=== PATIENT | female | born 1965 | race Caucasian/White ===

== ENCOUNTER 2022-08-28 08:50 | Outpatient (CLI) | payer OTHER, SELFPAY ==
--- OUTSIDE RECORDS SUMMARY | 2022-08-28 08:55 | XMS_ITS | Clinical Summary ---
:1965 Author Organization [facility] [place] [address] Care Team Providers Name Role Phone Gertrudis Juarez MD Primary Care Provider Allergies Active Allergy Reactions Severity Noted Date Comments Amoxicillin Rash 01/26/2019 Penicillin G Benzathin,Procain Rash 03/31/2014 Sulfa (Sulfonamide Antibiotics) Rash 9 Medications Medication Sig Dispensed Refills Start Date End Date Status levonorgestrel-ethinyl Take 1 tablet by 1 Package 0 12/19/2011 Active estradiol (TRIVORA, mouth once daily. 28,) 50-30 (6)/75-40 (5)/125-30(10) tablet Doxycycline Monohydrate Take 1 tablet by 0 2 Active 50 mg tablet mouth. Take 1 tablet twice daily for 1 month then Once daily calcium-cholecalciferol Take 1 tablet by 0 2 Active , vitamin D, 500 mg-200 mouth 3 times units (CALCIUM 500+D) daily with meals. 500 mg(1,250mg) -200 unit tablet cholecalciferol Take 1 capsule by 0 03/31/2014 Active (VITAMIN D) 1,000 unit mouth once daily. capsule metroNIDAZOLE 0.75 % Apply topically 45 g 0 06/20/2020 Active cream to affected area(s) 2 times daily. clocortolone 0.1% Apply topically 1 Tube 1 06/20/2020 Active topical (CLODERM) 0.1 % to affected topical area(s) 3 times creamIndications: daily. Rosacea brimonidine 0.33 % Apply topically 1 g 1 06/22/2020 Active glwpIndications: to affected Rosacea area(s). Active Problems Problem Noted Date History of acne rosacea 12/19/2011 Immunizations Name Administration Dates Next Due Influenza, IIV4 08/05/2018, 08/22/2015 Tdap 06/28/2010, 09/30/2008 Family History Medical History Relation Name Comments Brain cancer Brother Good Health Daughter 1 Good Health Daughter 2 Stroke Father Good Health Mother Relation Name Status Comments Brother Daughter 1 Alive Daughter 2 Alive Father Mother Alive Social History Tobacco Use Types Packs/Day Years Used Date Never Smoker Smokeless Tobacco: Never Used Alcohol Use Standard Drinks/Week Comments No 0 (1 standard drink = 0.6 oz pure alcoho l) Sex Assigned at Date Recorded Not on file Obstetrics History Last Filed Vital Signs Vital Sign Reading Time Taken Comments Blood Pressure 119/56 01/26/2019 11:26 AM CDT Pulse 76 01/26/2019 11:26 AM CDT Temperature 37.7 ??C (99.8 ??F) 01/26/2019 11:26 AM CDT Respiratory Rate 18 12/30/2018 9:15 AM CDT Oxygen Saturation 97% 01/26/2019 11:26 AM CDT Inhaled Oxygen Concentration - - Weight 56.2 kg (124 lb) 01/26/2019 11:26 AM CDT Height 160 cm (5' 3) 12/30/2018 9:15 AM CDT Body Mass Index 21.97 12/30/2018 9:15 AM CDT Plan of Treatment Health Maintenance Due Date Last Done Comments COVID-19 vaccine series (#1) 1966 HIV for age 15-65 1981 Hepatitis C screening for age 0401/17/1984 18-79 Colonoscopy through age 75 2011 Lipids for age 45-75 2011 Mammogram for age 45-75 2011 Zoster (shingles) series for age 0401/17/2016 50+ (1 of 2) BMI (ht and wt on same day) for 12/31/2019 12/30/2018, 05/31 age 18+ Tetanus booster 06/28/2020 06/28/2010, 09/30/2008 Pap test for age 21-65 08/09/2020 08/09/2017, 08/09/2017, 08/20/2014 Depression screening for age 12+ 06/21/2021 06/21/2020, , 01/26/2019, Additional history exists Influenza for age 50-64 05/31/2022 08/05/2018, 08/22/2015 Tdap Completed 06/28/2010, 09/30/2008 Results Not on filefrom Last 3 Months Insurance Payer Benefit Plan / Subscriber ID Effective Dates Phone Addre ss Type Group PREFERRED ONE PREFERRED ONE [id number] 2018-Present [address] [place] [phone] (Home) [phone] Care Teams Midwife Practitioner Relationship Specialty Start Date End Date Gertrudis Juarez MD PCP - General Family Practice 12/29/[address] [place] [address]
[2022-08-28 14:07] LABS: Chloride* 106 mmol/L (96-114); Sodium* 138 mmol/L (135-149)
[2022-08-28 14:08] LABS: Potassium* 4.4 mmol/L (3.6-5.1)
[2022-08-28 14:10] LABS: Carbon Dioxide* 27 mmol/L (20-32); Creatinine* 0.6 mg/dL (0.5-1.5); Estimated Glomerular Filt Rate 105 ml/min
[2022-08-28 14:11] LABS: Blood Urea Nitrogen* 12 mg/dL (7-30); Calcium* 8.6 mg/dL (8.4-10.6); Glucose* 86 mg/dL (60-115)
== END 2022-08-28 08:51 | disposition home or self-care (01) ==
PROVIDERS: PCP Family Medicine; Visit Provider Family Medicine
DX: Z01.419 Encounter for gynecological examination (general) (routine) without abnormal findings (principal); N95.1 Menopausal and female climacteric states; N95.9 Unspecified menopausal and perimenopausal disorder; Z13.1 Encounter for screening for diabetes mellitus; Z12.4 Encounter for screening for malignant neoplasm of cervix
CPT/HCPCS: 80048; 83001; 84443

== ENCOUNTER 2023-08-30 10:22 | Outpatient (CLI) | payer OTHER, SELFPAY | END 2023-08-30 10:23 | disposition home or self-care (01) | PROVIDERS: PCP Family Medicine; Visit Provider Family Medicine | DX: N95.1 Menopausal and female climacteric states (principal); Z13.1 Encounter for screening for diabetes mellitus; Z13.220 Encounter for screening for lipoid disorders | CPT/HCPCS: 80048; 80061; 83001 ==

== ENCOUNTER 2024-08-26 14:01 | Outpatient (CLI) | payer OTHER, SELFPAY ==
--- OUTSIDE RECORDS SUMMARY | 2024-08-26 14:05 | XMS_ITS | Clinical Summary ---
Author Organization [facility] Address [place], [place] [address] Care Team Providers Care Raw Material Handler Name Role Phone Larry Blake MD Primary Care Provider [phone] Allergies Active Allergy Reactions Criticality Noted Date Comments Amoxicillin Rash 01/26/2019 Penicillin G Benzathin,Procain Rash 03/31 Sulfa (Sulfonamide Antibiotics) Rash 12/30 Medications Medication Sig Dispensed Refills Start Date End Date Status levonorgestrel-ethiny l estradiol (TRIVORA, 28,) 50-30 (6)/75-40 (5)/125-30(10) tablet Take 1 tablet by mouth once daily. 1 Package 0 12/19/2011 Active cholecalciferol (VITAMIN D) 1,000 unit capsule Take 1 capsule by mouth once daily. 0 03/31/2014 Active metoprolol succinate (TOPROL XL) 25 mg Sustained-Release tablet Take 12.5 mg by mouth. 04/30/2024 Active Active Problems Problem Noted Date Diagnosed Date History of acne rosacea 12/19/2011 Immunizations Name Administration Dates Next Due Influenza, IIV4 08/05/2018,08/22/2015 Tdap 06/28/2010,09/30/2008 Family History Medical History Relation Name Comments Brain cancer Brother Good Health Daughter 1 Good Health Daughter 2 Stroke Father Good Health Mother Relation Name Status Comments Brother Daughter 1 Alive Daughter 2 Alive Father Mother Alive Social History Tobacco Use Types Packs/Day Years Used Date Smoking Tobacco: Never Smokeless Tobacco: Never Alcohol Use Standard Drinks/Week Comments No 0 (1 standard drink = 0.6 oz pur e alcohol) PHQ-2 Answer Date Recorded PHQ-2 TOTAL SCORE 0 06/20/2020 Social Connections Answer Date Recorded Frequency of Communication with Friends and Fami ly Not on file 09/30/2021 Financial Resource Strain Answer Date R ecorded Difficulty of Paying Living Expenses Not on file 09/30/2021 Difficulty of Paying Living Expenses Not on file 09/30/2021 Sex and Gender Information Value Date Recorded Sex Assigned at Not on file Gender Identity Not on file Sexual Orientation Not on file Obstetrics History Last Filed Vital Signs Vital Sign Reading Time Taken Comments Blood Pressure 158/88 05/04/2024 9:05 AM CDT Pulse 58 05/04/2024 9:05 AM CDT Temperature 37.2 C (98.9 F) 05/04/2024 9:05 AM CDT Respiratory Rate 16 05/04/2024 9:05 AM CDT Oxygen Saturation 98% 05/04/2024 9:05 AM CDT Inhaled Oxygen Concentration - - Weight 55.8 kg (123 lb) 05/04/2024 9:05 AM CDT Height 160 cm (5' 3) 03/23/2024 2:06 PM CDT Body Mass Index 21.79 03/23/2024 2:06 PM CDT Plan of Treatment Health Maintenance Due Date Last Done Comments HIV for age 15-65 1981 Hepatitis C screening for age 18-79 01/17/1984 Colonoscopy through age 75 2011 Lipids for age 45-75 2011 Mammogram for age 45-75 2011 Zoster (shingles) series for age 50+ (1 of 2) 01/17/2016 BMI (ht and wt on same day) for age 18+ 12/31/2019 12/30/2018, 06/11/2016 Tetanus booster 06/28/2020 06/28/2010, 09/30/2008 Depression screening for age 12+ 06/21/2021 06/21/2020, 06/20/2020, 01/26/2019, Additional history exists COVID-19 vaccine series ( season) 2024 08/19/2021, 12/15/2020, 11/26/2020 Influenza for age 50-64 05/31/2024 08/05/2018, 08/22 Pap test for age 21-65 08/28/2025 , 08/28/2022, 08/09/2017, Additional history exists Tdap Completed 06/28/2010, 09/30/2008 Pneumococcal series for age 6-64 Aged Out No longer eligible based on patient's age to complete this topic Procedures Procedure Name Priority Date/Time Associated Diagnosis Comments HPV HIGH RISK Routine 08/28/2022 9:09 AM SCHOOL PHOTOGRAPHER from Last 3 Months or Most Recently Relevant to Health Maintenance Results * HPV HIGH RISK (08/28/2022 9:09 AM SCHOOL PHOTOGRAPHER) TYPE 16 Negative Negative 09/03/2022 11:11 AM SCHOOL PHOTOGRAPHER [facility] TYPE 18 Negative Negative 09/03/2022 11:11 AM SCHOOL PHOTOGRAPHER [facility] TR[facility] OTHER HIGH RISK TYPES Negative Negative 09/03/2022 11:11 AM SCHOOL PHOTOGRAPHER [facility] Other (Cervical) 08/28/2022 9:09 AM SCHOOL PHOTOGRAPHER 08/30/2022 3:28 PM SCHOOL PHOTOGRAPHER Narrative [facility] - 09/03/2022 11:11 AM SCHOOL PHOTOGRAPHER HPV types 16, 18, 31, 33, 35, 39, 45, 51, 52, 56, 58, 59, 66 and 68 DNA were undetectable or below the pre-set threshold. Methodology: Siddharth Antonio 4800 HPV Test Larry Blake MD [facility] [address] [place] [address], from Last 3 Months or Most Recently Relevant to Health Maintenance Care Teams Raw Material Handler Relationship Specialty Start Date End Date Larry Blake MD [address] [place] [address] PCP - General Family Practice 05/04/24
--- OUTSIDE RECORDS SUMMARY | 2024-08-26 14:05 | XMS_ITS | Clinical Summary ---
Author Organization [facility] Address [address] [place] [address] Care Team Providers Care Rn Clinical Quality Name Role Phone Kai Blake MD Primary Care Provider Leo Mayberry PA-C Unavailable Allergies Active Allergy Reactions Criticality Noted Date Comments Amoxicillin 06/11/2016 Penicillins Rash Low 06/11/2016 Sulfa Antibiotics 06/11/2016 Medications calcium carb 1250 mg, 500 mg tanana,/vitamin D 200 units (OSCAL WITH D) 500-200 MG-UNIT per tablet Take 1 tablet by mouth daily Active multivitamin, therapeutic with minerals (THERA-VIT-M) TABS Take 1 tablet by mouth daily Active levonorgestrel-e thinyl estradiol (TRIVORA, 28,) per tablet Take 1 tablet by mouth daily Active Cholecalciferol (VITAMIN D3 PO) Take 1,000 Units by mouth daily Active VITAMIN E NATURAL PO Take 1,000 Units by mouth daily Active metoprolol succinate ER (TOPROL XL) 25 MG 24 hr tabletIndication s:Cardiomyopathy , nonischemic (H) Take 0.5 tablets (12.5 mg) by mouth daily 45 tablet 3 04/30/2024 Active Active Problems Problem Noted Date Diagnosed Date NSTEMI (non-ST elevated myocardial infarction) 0 03/23/2024 Renal colic on right side 06/11/2016 Social History Tobacco Use Types Packs/Day Years Used Date Smoking Tobacco: Never Alcohol Use Standard Drinks/Week Comments Yes 0 (1 standard drink = 0.6 oz pur e alcohol) rarely PHQ-2 Answer Date Recorded PHQ-2 Score 0 04/30/2024 Adolescent Education Answer Date Record ed Getting School Help Needed Not on file 03/23 Comments Unknown Sex and Gender Information Value Date Recorded Sex Assigned at Not on file Legal Sex 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 Gender Identity Not on file Sexual Orientation Not on file Last Filed Vital Signs Vital Sign Reading Time Taken Comments Blood Pressure 130/75 04/30/2024 9:02 AM CDT Pulse 68 04/30/2024 9:02 AM CDT Temperature 36.8 C (98.2 F) 03/25/2024 7:42 AM CDT Respiratory Rate 20 03/25/2024 11:34 AM CDT Oxygen Saturation 99% 04/30/2024 9:02 AM CDT Inhaled Oxygen Concentration - - Weight 56.8 kg (125 lb 4.8 oz) 04/30/2024 9:02 A M CDT Height 160 cm (5' 3) 04/30/2024 9:02 AM CDT Body Mass Index 22.2 04/30/2024 9:02 AM CDT Plan of Treatment Health Maintenance Due Date Last Done Comments ADVANCE CARE PLANNING 1966 ANNUAL REVIEW OF HM ORDERS 1966 CT COLONOGRAPHY 1966 FIT 1966 FLEX SIG 1966 MAMMO SCREENING 1966 YEARLY PREVENTIVE VISIT 1966 sDNA (Cologuard) 1966 Pneumococcal Vaccine: Pediatrics (0 to 5 Years) and At-Risk Patients (6 to 64 Years) (1 of 2 - PCV) 01/17/1972 COLONOSCOPY 01/17/1976 COLORECTAL CANCER SCREENING 01/17/1976 HIV SCREENING 1981 HEPATITIS C SCREENING 01/17/1984 HEPATITIS B IMMUNIZATION (1 of 3 - 19+ 3-dose series) 1985 ZOSTER IMMUNIZATION (1 of 2) 01/17/2016 COVID-19 Vaccine ( season) 2024 08/19/2021, 12/15/2020, 11/26/2020 INFLUENZA VACCINE (#1) 2024 , 08/28/2022, 08/14/2021, Additional history exists PAP 08/28/2025 08/28/2022 GLUCOSE 03/24/2027 03/24/2024, 05/31, 06/11/2016 LIPID 03/24/2029 03/24/2024 DTAP/TDAP/TD IMMUNIZATION (4 - Td or Tdap) 08/12/2030 08/12/2020, 06/28/2010, 09/30/2008, Additional history exists RSV VACCINE (1 - 1-dose 75+ series) 2041 PHQ-2 (once per calendar year) Completed 04/30/2024 HPV IMMUNIZATION Aged Out No longer e ligible based on patient's age to complete this topic MENINGITIS IMMUNIZATION Aged Out No l onger eligible based on patient's age to complete this topic RSV MONOCLONAL ANTIBODY Aged Out No l onger eligible based on patient's age to complete this topic Procedures Procedure Name Priority Date/Time Associated Diagnosis Comments GLUCOSE BY METER Routine 03/24/2024 2:19 PM CDT LIPID REFLEX TO DIRECT LDL PANEL Routine 03/24/2024 9:35 AM CDT from Last 3 Months or Most Recently Relevant to Health Maintenance Results * Glucose by meter (03/24/2024 2:19 PM CDT) GLUCOSE BY METER POCT 97 70 - 99 mg/dL 03/24/2024 2:25 PM CDT LABORATORY POC Blood, Capillary BLOOD SPECIMEN / Unknown 03/24/2024 2:19 PM CDT 03/24/2024 2:25 PM CDT us Laura Reynolds MD LAB - BEAKER POCT Final Result LABORATORY POC [facility] [address], [address] [place] [address], [facility] * Lipid panel reflex to direct LDL (03/24/2024 9:35 AM CDT) Cholesterol 164 <200 mg/dL 03/24/2024 4:25 PM CDT [facility] Triglycerides 118 <150 mg/dL 03/24/2024 4:25 PM CDT [facility] Direct Measure HDL 55 >=50 mg/dL 2023 4:25 PM CDT [facility] LDL Cholesterol Calculated 85 <=100 mg/dL 03/24/2024 4:25 PM CDT [facility] Non HDL Cholesterol 109 <130 mg/dL 03/24/2024 4:25 PM CDT [facility] Blood STRUCTURE OF LEFT UPPER LIMB / Unknown Venipuncture / Unknown 03/24/2024 9:35 AM CDT 03/24/2024 9:42 AM CDT Narrative [facility] - 03/24/2024 4:25 PM CDT Cholesterol Desirable: <200 mg/dL Triglycerides Normal: Less than 150 mg/dL Borderline High: 150-199 mg/dL High: 200-499 mg/dL Very High: Greater than or equal to 500 mg/dL Direct Measure HDL Female: Greater than or equal to 50 mg/dL Male: Greater than or equal to 40 mg/dL LDL Cholesterol Desirable: <100mg/dL Above Desirable: 100-129 mg/dL Borderline High: 130-159 mg/dL High: 160-189 mg/dL Very High: >= 190 mg/dL Non HDL Cholesterol Desirable: 130 mg/dL Above Desirable: 130-159 mg/dL Borderline High: 160-189 mg/dL High: 190-219 mg/dL Very High: Greater than or equal to 220 mg/dL us Benedicto Ohara MD LAB - BLOOD ORDERABLES Final Result [facility] [address], [address] [place] [address] from Last 3 Months or Most Recently Relevant to Health Maintenance Insurance [employer] Advance Directives For more information, please contact: [phone] * Full Code (Latest Code Status on File) Date Activated Date Inactivated Comments 03/23/2024 7:17 PM 03/25/2024 3:01 PM All basic an d advanced life-sustaining interventions are performed as appropriate Question Answer Comments Code status determined by: Discussion with patie nt/ legal decision maker * Full Code Date Activated Date Inactivated Comments 06/11/2016 1:05 PM 06/12/2016 6:35 PM Care Teams Rn Clinical Quality Relationship Specialty Start Date End Date Kai Blake MD PCP - General Family Practice 06/11/16 Leo Mayberry PA-C [address] [id number] Assigned Heart and Vascular Provider 05/22/24
--- OUTSIDE RECORDS SUMMARY | 2024-08-26 14:05 | XMS_ITS | Referral Summary ---
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 Gender Identity Not on file Sexual Orientation [...] 04/30/2024 9:02 AM CDT Plan of Treatment Not on file Procedures Procedure Name Priority Date/Time Associated Diagnosis Comments GLUCOSE BY METER Routine 03/24/2024 2:19 PM CDT LIPID REFLEX TO DIRECT LDL PANEL Routine 03/24/2024 9:35 AM CDT from Last 3 Months or Most Recently Relevant to Health Maintenance Results * Glucose by meter (03/24/2024 2:19 PM CDT) [facility] GLUCOSE BY METER POCT 97 70 - 99 mg/dL 03/24/2024 2:25 PM CDT LABORATORY POC Blood, Capillary BLOOD SPECIMEN / Unknown 03/24/2024 2:19 PM CDT 03/24/2024 2:25 PM CDT us Laura Reynolds MD LAB - BEAKER POCT Final Result LABORATORY POC [facility] Acute Care Lab [address], [address] [place] [address], [facility] * Lipid panel reflex to direct LDL [...] - BLOOD ORDERABLES Final Result [facility] [place] [facility] [address], [address] [place] [address], [facility] from Last 3 Months or Most Recently Relevant to Health Maintenance Insurance [employer] Advance Directives For more information, please contact: [phone] * Full Code (Latest Code Status on File) Date Activated Date Inactivated Comments 03/23/2024 7:17 PM 03/25/2024 3:01 PM All basic an d advanced life-sustaining interventions are performed as appropriate Question Answer Comments Code status determined by: Discussion with patie nt/ legal decision maker * Full Code Date Activated Date Inactivated Comments 06/11/2016 1:05 PM 06/12/2016 6:35 PM Care Teams Carpenter'S Assistant Relationship Specialty Start Date End Date Kai Blake MD PCP - General Family Practice 06/11/16 Leo Mayberry PA-C [address] [id number] Assigned Heart and Vascular Provider 05/22/24
== END 2024-08-26 14:02 | disposition home or self-care (01) ==
PROVIDERS: PCP Family Medicine; Visit Provider Family Medicine
DX: N95.1 Menopausal and female climacteric states (principal); Z13.29 Encounter for screening for other suspected endocrine disorder
CPT/HCPCS: 83001; 84443

== ENCOUNTER 2025-08-05 08:14 | Outpatient (CLI) | payer OTHER, SELFPAY | END 2025-08-05 08:15 | disposition home or self-care (01) | LOC: NFLDREF 08-09 03:33 | PROVIDERS: PCP Family Medicine; Referring Provider Family Medicine; Visit Provider Family Medicine | DX: M25.50 Pain in unspecified joint (principal); N95.1 Menopausal and female climacteric states; R74.8 Abnormal levels of other serum enzymes; R53.83 Other fatigue; B33.24 Viral cardiomyopathy; Z13.1 Encounter for screening for diabetes mellitus; Z13.6 Encounter for screening for cardiovascular disorders; Z13.21 Encounter for screening for nutritional disorder; Z13.29 Encounter for screening for other suspected endocrine disorder | CPT/HCPCS: 80053; 80061; 82306; 83001; 83540; 84550; 86141 ==

== ENCOUNTER 2025-08-17 09:15 | Outpatient (CLI) | payer OTHER, SELFPAY | END 2025-08-17 09:16 | disposition home or self-care (01) | LOC: NFLDREF 08-21 16:53 | PROVIDERS: PCP Family Medicine; Referring Provider Family Medicine; Visit Provider Family Medicine | DX: Z13.29 Encounter for screening for other suspected endocrine disorder (principal); R74.8 Abnormal levels of other serum enzymes | CPT/HCPCS: 80076; 84443; 86038; 86140 ==